=== PATIENT | female | born 1970 | race African-American/Black ===

== ENCOUNTER 2020-11-03 10:03 | Inpatient (IN) ==
[2020-10-28 12:49] LABS: Basophils % 0.3 % (0.0-0.8); Eosinophils # 0.1 10*3/uL (0.0-0.87); Eosinophils % 0.5 % (0.00-10.9); Hematocrit 32.9 VOL% (35.7-47.0); Hemoglobin 10.3 GM/DL (12.0-16.0); Immature Granulocytes % 0.3 %; Immature Granulocytes Absolute 0.03 #; Lymphocytes # 2.1 10*3/uL (1.4-4.0); Lymphocytes % 22.2 % (21.3-54.2); Mean Corpuscular HGB Conc 31.3 GM/DL (32-36); Mean Corpuscular Volume 81.2 FL (87-102); Mean Platelet Volume 11.2 FL (9.6-12.0); Monocytes % 7.7 % (1.7-12.7); Platelet Count 342 T/CUMM (130-400); Red Blood Count 4.05 MC/CUMM (3.8-5.5); Red Cell Distribution Width 15.3 % (9.3-17.3); White Blood Count 9.4 T/CUMM (4-12)
[2020-10-28 12:51] LABS: Bilirubin,Urine Negative (Negative); Blood, Urine Negative (Negative); Glucose,Urine (UA) Negative (Negative); Ketones,Urine Negative (Negative); Nitrite,Urine Negative (Negative); Protein,Urine Negative; RBC,Urine 1 /HPF (0-4); Squamous Epithelial Cell,Urine Occasional /HPF (0-10); Urine Appearance CLEAR (Clear); Urine Color Straw (Yellow); Urine Urobilinogen < 2.0 EU/DL (0.2-1.0)
[2020-10-28 12:58] LABS: Alanine Aminotransferase 27 U/L (13-56); Albumin 3.5 G/DL (3.4-5.0); Alkaline Phosphatase 66 U/L (45-117); Aspartate Amino Transferase 26 U/L (0-37); Bilirubin,Total < 0.39 MG/DL (0.2-1.0); Blood Urea Nitrogen 10 MG/DL (7-18); Calcium 9.2 MG/DL (8.5-10.1); Carbon Dioxide 28 MMOL/L (21-32); Estimated Glom Filtration Rate 110 ML/MIN; Glucose 88 MG/DL (74-106); HDL Cholesterol 44 MG/DL (40-60); Osmolality,Calculated 276.4 MOS/KG (273-304); Potassium 4.2 MMOL/L (3.5-5.1); Sodium 140 MMOL/L (136-145); Total Protein 6.4 G/DL (6.4-8.2); Triglycerides 102 MG/DL (2-150); VLDL CHOLESTEROL 20.4 MG/DL
[2020-10-28 13:27] LABS: HIV Antigen/Antibody Result Nonreactive (Nonreactive)
[~2020-11-03 10:03] MED LIST: AMPICILLIN/SULBACTAM 3,000 MG in SODIUM CHLORIDE 0.9% 100 ML IV ONE
[2020-11-03] MEDS ORDERED: FAMOTIDINE 20 MG TABLET PO ONE (10:54)
[2020-11-03] MEDS ORDERED: DIAZEPAM 5 MG TABLET PO ONE (10:54)
[2020-11-03] MEDS ORDERED: LACTATED RINGERS 1,000 ML IV SCH ×2 (11:00→16:00)
[2020-11-03] MEDS ORDERED: MICROFIBRILLAR COLLAGEN POWDER 1 GM CAN TOP ONE (13:27)
[2020-11-03] MEDS ORDERED: ROCURONIUM 50 MG/5 ML VIAL IV ONE (13:37)
[2020-11-03] MEDS ORDERED: propofoL 200 MG/20 ML VIAL IV ONE (13:37)
[2020-11-03] MEDS ORDERED: LIDOCAINE 2% 5 ML VIAL ONE (13:37)
[2020-11-03] MEDS ORDERED: fentaNYL 100 MCG/2 ML VIAL ONE (13:37)
[2020-11-03] MEDS ORDERED: MIDAZOLAM 2 MG/2 ML VIAL ONE (13:37)
[2020-11-03] MEDS ORDERED: DEXAMETHASONE 4 MG/1 ML VIAL ONE ×2 (13:40→15:41)
[2020-11-03] MEDS ORDERED: ROPIVACAINE 0.5% 30 ML VIAL ONE (13:40)
[2020-11-03] MEDS ORDERED: GLYCOPYRROLATE 0.4 MG/2 ML VIAL ONE (15:39)
[2020-11-03] MEDS ORDERED: SEVOFLURANE 1 UNIT/15 MINUTE INH ONE (15:40)
[2020-11-03] MEDS ORDERED: KETOROLAC 30 MG/1 ML VIAL ONE (15:41)
[2020-11-03] MEDS ORDERED: ONDANSETRON 4 MG/2 ML VIAL ONE (15:41)
[2020-11-03] MEDS ORDERED: NEOSTIGMINE 10 MG/10 ML VIAL ONE (15:41)
[2020-11-03] MEDS ORDERED: LACTATED RINGERS 1,000 ML IV ONE (15:41)
[2020-11-03] MEDS ORDERED: BISACODYL 10 MG SUPP RECTAL PRN (15:57)
[2020-11-03] MEDS ORDERED: BENZOCAINE/MENTHOL LOZENGE 18/BOX PO PRN (15:57)
[2020-11-03] MEDS ORDERED: ACETAMINOPHEN 325 MG TABLET PO PRN (15:57)
[2020-11-03] MEDS ORDERED: ONDANSETRON 4 MG/2 ML VIAL IV PRN (15:57)
[2020-11-03] MEDS ORDERED: HYDROmorphone 2 MG/1 ML VIAL IV PRN (16:07)
[2020-11-03 16:41] LABS: Bilirubin,Urine Negative (Negative); Blood, Urine Negative (Negative); Glucose,Urine (UA) Negative (Negative); Ketones,Urine Negative (Negative); Nitrite,Urine Negative (Negative); Protein,Urine Negative; RBC,Urine <1 /HPF (0-4); Squamous Epithelial Cell,Urine Occasional /HPF (0-10); Urine Appearance CLEAR (Clear); Urine Color Colorless (Yellow); Urine Specific Gravity 1.006 (1.001-1.035); Urine Urobilinogen < 2.0 EU/DL (0.2-1.0)
[2020-11-03] MEDS ORDERED: KETOROLAC 30 MG/1 ML VIAL IV PRN (17:05)
[2020-11-04 01:18] LABS: Basophils % 0.1 % (0.0-0.8); Hematocrit 35.6 VOL% (35.7-47.0); Hemoglobin 11.8 GM/DL (12.0-16.0); Immature Granulocytes % 0.4 %; Immature Granulocytes Absolute 0.07 #; Lymphocytes # 0.8 10*3/uL (1.4-4.0); Mean Corpuscular HGB Conc 33.1 GM/DL (32-36); Mean Corpuscular Volume 79.8 FL (87-102); Mean Platelet Volume 11.2 FL (9.6-12.0); Monocytes % 1.6 % (1.7-12.7); Neutrophils % 92.9 % (38.7-73.9); Platelet Count 363 T/CUMM (130-400); Red Blood Count 4.46 MC/CUMM (3.8-5.5); White Blood Count 16.7 T/CUMM (4-12)
[2020-11-04 02:42] LABS: Lymphocytes 6 % (20-55); Segmented Neutrophils 94 % (50-85); Total Cells Counted 100
[2020-11-04 02:43] LABS: Anisocytosis 1+; Hypochromasia 1+; Microcytosis 2+; Platelet Estimate Increased
[2020-11-04 02:44] LABS: Polychromasia Slight
[2020-11-04 05:25] LABS: Basophils % 0.1 % (0.0-0.8); Hematocrit 34.2 VOL% (35.7-47.0); Immature Granulocytes % 0.5 %; Immature Granulocytes Absolute 0.09 #; Lymphocytes # 1.1 10*3/uL (1.4-4.0); Lymphocytes % 6.5 % (21.3-54.2); Mean Corpuscular HGB Conc 32.2 GM/DL (32-36); Mean Corpuscular Volume 79.7 FL (87-102); Monocytes % 3.4 % (1.7-12.7); Neutrophils % 89.5 % (38.7-73.9); Platelet Count 356 T/CUMM (130-400); Red Blood Count 4.29 MC/CUMM (3.8-5.5); Red Cell Distribution Width 15.1 % (9.3-17.3); White Blood Count 17.7 T/CUMM (4-12)
[2020-11-04] MEDS: IBUPROFEN 800 MG TABLET PO PRN ×2 (06:15→13:58)
[2020-11-04] MEDS: DOCUSATE SODIUM 100 MG CAPSULE PO PRN ×2 (09:30→20:06)
[2020-11-04] MEDS: METOCLOPRAMIDE 10 MG TABLET PO SCH ×2 (09:30→16:55)
[2020-11-04] MEDS: MAGNESIUM HYDROXIDE SUSP 30 ML UDCUP PO PRN ×2 (09:30→20:06)
[2020-11-04] MEDS: FLUTICASONE 50 MCG NASAL SPRAY 16 GM BOTTLE BOTH NARES SCH ×2 (16:56→20:03)
[2020-11-04] MEDS ORDERED: SIMETHICONE CHEW 80 MG TABLET PO PRN (19:58)
[2020-11-04] MEDS ORDERED: IBUPROFEN 800 MG TABLET PO PRN (20:00)
[2020-11-05 08:01] VITALS: BP 137/52
[2020-11-05] MEDS: FLUTICASONE 50 MCG NASAL SPRAY 16 GM BOTTLE BOTH NARES SCH (10:02)
[2020-11-05] MEDS: METOCLOPRAMIDE 10 MG TABLET PO SCH (10:03)
== END 2020-11-05 10:10 | disposition home or self-care (01) | DRG 743 ==
LOC: N.OR 10:03 → N.SDSINP 10:05 → EDSTATUS 13:30 → N.OB 15:56
PROVIDERS: ADMIT Obstetrics & Gynecology; ATTEND Obstetrics & Gynecology